=== PATIENT | male | born 1955 | race African-American/Black ===

== ENCOUNTER 2017-02-14 01:45 | Inpatient (IN) | payer MEDICAID ==
[~2017-02-14] VITALS: Ht 177.8 cm; Wt 124.7 kg
[2017-02-14] MEDS ORDERED: FUROSEMIDE 40MG/4ML VIAL IV STA (02:36)
[2017-02-14 02:54] LABS: EOSINOPHILS % 5.8 % (0.0-5.0); HEMATOCRIT. 43.1 % (42.0-52.0); HEMOGLOBIN. 14.7 g/dL (14.0-18.0); LYMPHOCYTES % 21.7 % (20.0-50.0); MEAN CORPUSCULAR HEMOGLOBIN 29.8 pg (28.0-32.0); MEAN CORPUSCULAR VOLUME 87.7 fL (80.0-94.0); MEAN PLATELET VOLUME 8.4 fl (7.4-10.4); NEUTROPHILS % 59.5 % (40.0-76.0); PLATELET 249 x1000/uL (130-400); RED BLOOD CELL COUNT 4.91 mill/uL (4.7-6.1); RED CELL DISTRIBUTION WIDTH 13.7 % (11.6-14.6)
[2017-02-14 03:10] LABS: CARBON DIOXIDE 27 mEq/L (21-32); CHLORIDE 104 mEq/L (98-107); TROPONIN I < 0.02 ng/mL (0.00-0.04)
[2017-02-14] MEDS ORDERED: MORPHINE SULFATE 4 MG/ML CPJ (NOT FOR IM USE) IV ONE (03:30)
[2017-02-14] MEDS ORDERED: ACETAMINOPHEN 325MG TABLET PO PRN ×2 (06:30→12:00)
[2017-02-14] MEDS ORDERED: GUAIFENESIN 200MG/10ML SUGAR FREE UDC PO PRN (12:00)
[2017-02-14] MEDS ORDERED: ONDANSETRON HCL 4MG/2ML VIAL IV PRN (12:00)
[2017-02-14] MEDS ORDERED: CLONIDINE 0.1MG TABLET PO PRN ×2 (12:00→12:45)
[2017-02-14] MEDS ORDERED: HYDROCODONE/ACETAMINOPHEN 5/325MG TABLET PO PRN (12:00)
[2017-02-14] MEDS ORDERED: IPRATROPIUM/ALBUTEROL 0.5-3(2.5)MG/3ML NEB INH PRN (12:00)
[2017-02-14] MEDS ORDERED: MAGNESIUM/ALUMINUM HYDROXIDE/SIMETHICONE 30ML UDC PO PRN (12:00)
[2017-02-14 13:02] LABS: CHLORIDE 103 mEq/L (98-107)
[2017-02-14 13:07] LABS: CARBON DIOXIDE 31 mEq/L (21-32)
[2017-02-14 13:52] VITALS: BP 141/96
[2017-02-14] MEDS: LOSARTAN POTASSIUM 25 MG TABLET PO SCH ×2 (14:31→23:22)
[2017-02-14] MEDS: PREDNISONE 20MG TABLET PO SCH (14:31)
[2017-02-14] MEDS: PANTOPRAZOLE 40MG DR TABLET PO SCH (14:32)
[2017-02-14] MEDS ORDERED: LISI-604 PO (15:06)
[2017-02-14] MEDS ORDERED: FURO-151 PO (15:06)
[2017-02-14] MEDS ORDERED: KDUR20 PO (15:06)
[2017-02-14] MEDS ORDERED: CARV6.2548 PO (15:06)
[2017-02-14 15:49] VITALS: BP 141/96
[2017-02-14 16:00] VITALS: BP 156/97
[2017-02-14] MEDS: POTASSIUM CHLORIDE 20MEQ TABLET SR PO SCH (17:17)
[2017-02-14 18:11] LABS: CREATINE KINASE MB FRACTION 2.6 ng/mL (0.5-3.6); TROPONIN I < 0.02 ng/mL (0.00-0.04)
[2017-02-14 18:15] LABS: CREATINE KINASE 1134 IU/L (39-308)
[2017-02-14 20:00] VITALS: BP 143/65
[2017-02-14] MEDS: BUDESONIDE 0.5MG/2ML NEB HHN SCH (20:23)
[2017-02-14] MEDS: ENOXAPARIN 40MG/0.4ML SYR SUBCUT SCH (23:22)
[2017-02-15] VITALS: BP 136/78
[2017-02-15 04:00] VITALS: BP 144/66
[2017-02-15] MEDS: PANTOPRAZOLE 40MG DR TABLET PO SCH (06:41)
[2017-02-15 08:30] VITALS: BP 129/90
[2017-02-15] MEDS ORDERED: FUROSEMIDE 40MG TABLET PO SCH (09:00)
[2017-02-15] MEDS ORDERED: CARVEDILOL 6.25 MG TABLET PO SCH (09:00)
[2017-02-15] MEDS: ENOXAPARIN 40MG/0.4ML SYR SUBCUT SCH ×2 (10:05→21:37)
[2017-02-15] MEDS: ASPIRIN 81MG EC TABLET PO SCH (10:06)
[2017-02-15] MEDS: FUROSEMIDE 40MG/4ML VIAL IVP SCH (10:06)
[2017-02-15] MEDS: POTASSIUM CHLORIDE 20MEQ TABLET SR PO SCH (10:06)
[2017-02-15] MEDS: LISINOPRIL 20MG TABLET PO SCH (10:07)
[2017-02-15] MEDS: PREDNISONE 20MG TABLET PO SCH (10:08)
[2017-02-15] MEDS: LOSARTAN POTASSIUM 25 MG TABLET PO SCH ×2 (10:08→21:41)
[2017-02-15] MEDS ORDERED: IPRATROPIUM/ALBUTEROL 0.5-3(2.5)MG/3ML NEB HHN PRN (12:45)
[2017-02-15 12:51] VITALS: BP 136/79
[2017-02-15] MEDS: IPRATROPIUM/ALBUTEROL 0.5-3(2.5)MG/3ML NEB HHN SCH ×2 (12:52→20:18)
[2017-02-15] MEDS: BUDESONIDE 0.5MG/2ML NEB HHN SCH ×2 (12:52→20:18)
[2017-02-15] MEDS: TRIAMCINOLONE ACETONIDE 0.1% CREAM 15GM TOP SCH ×2 (15:41→21:37)
[2017-02-15] MEDS: NICOTINE 7MG PATCH TD SCH (15:41)
[2017-02-15 16:06] LABS: CLARITY URINE CLEAR (CLEAR); COLOR URINE YELLOW (YELLOW); GLUCOSE URINE NEGATIVE (NEGATIVE); KETONES URINE NEGATIVE (NEGATIVE); LEUKOCYTE ESTERASE URINE NEGATIVE (NEGATIVE); NITRITE URINE NEGATIVE (NEGATIVE); OCCULT BLOOD URINE NEGATIVE (NEGATIVE); PH URINE >=9.0 (4.5-8.0); PROTEIN URINE NEGATIVE (NEGATIVE); SPECIFIC GRAVITY URINE 1.017 (1.005-1.030)
[2017-02-15] MEDS: CARVEDILOL 6.25 MG TABLET PO SCH (16:08)
[2017-02-15 16:31] LABS: *AMPHETAMINES SCREEN URINE NEGATIVE (NEGATIVE); *BARBITURATES SCREEN URINE NEGATIVE (NEGATIVE); *BENZODIAZEPINES SCREEN URINE NEGATIVE (NEGATIVE); *COCAINE SCREEN URINE NEGATIVE (NEGATIVE); CANNABINOID URINE SCREEN PRESUMTIVE POSITIVE (NEGATIVE); METHADONE URINE SCREEN NEGATIVE (NEGATIVE); OPIATES URINE SCREEN NEGATIVE (NEGATIVE); PHENCYCLIDINE URINE SCREEN NEGATIVE (NEGATIVE)
[2017-02-15 16:46] VITALS: BP 165/92
[2017-02-15 19:55] VITALS: BP 125/65
[2017-02-16] MEDS: IPRATROPIUM/ALBUTEROL 0.5-3(2.5)MG/3ML NEB HHN SCH ×5 (00:12→15:00)
[2017-02-16 00:40] VITALS: BP 102/69
[2017-02-16 04:59] VITALS: BP 119/72
[2017-02-16 06:38] LABS: BASOPHILS % 0.5 % (0.0-2.0); EOSINOPHILS % 1.6 % (0.0-5.0); HEMATOCRIT. 42.5 % (42.0-52.0); HEMOGLOBIN. 14.4 g/dL (14.0-18.0); LYMPHOCYTES % 18.7 % (20.0-50.0); MEAN CORPUSCULAR HEMOGLOBIN 29.9 pg (28.0-32.0); MEAN PLATELET VOLUME 9.1 fl (7.4-10.4); MONOCYTES % 7.1 % (2.0-8.0); NEUTROPHILS % 72.1 % (40.0-76.0); PLATELET 242 x1000/uL (130-400); RED BLOOD CELL COUNT 4.83 mill/uL (4.7-6.1)
[2017-02-16 06:58] LABS: CARBON DIOXIDE 30 mEq/L (21-32); CHLORIDE 102 mEq/L (98-107)
[2017-02-16 06:59] LABS: TROPONIN I < 0.02 ng/mL (0.00-0.04)
[2017-02-16 07:57] VITALS: BP 124/75
[2017-02-16] MEDS ORDERED: FAMOTIDINE 20MG TABLET PO SCH (09:00)
[2017-02-16] MEDS: BUDESONIDE 0.5MG/2ML NEB HHN SCH (09:54)
[2017-02-16] MEDS: ENOXAPARIN 40MG/0.4ML SYR SUBCUT SCH (10:55)
[2017-02-16] MEDS: NICOTINE 7MG PATCH TD SCH (10:55)
[2017-02-16] MEDS: LOSARTAN POTASSIUM 25 MG TABLET PO SCH (10:56)
[2017-02-16] MEDS: TRIAMCINOLONE ACETONIDE 0.1% CREAM 15GM TOP SCH (10:56)
[2017-02-16] MEDS: CARVEDILOL 6.25 MG TABLET PO SCH ×2 (10:56→16:20)
[2017-02-16] MEDS: PREDNISONE 20MG TABLET PO SCH (10:57)
[2017-02-16] MEDS: LISINOPRIL 20MG TABLET PO SCH (10:57)
[2017-02-16] MEDS: FUROSEMIDE 40MG/4ML VIAL IVP SCH (10:58)
[2017-02-16] MEDS: POTASSIUM CHLORIDE 20MEQ TABLET SR PO SCH (10:58)
[2017-02-16] MEDS: ASPIRIN 81MG EC TABLET PO SCH (10:58)
[2017-02-16 12:00] VITALS: BP 143/93
[2017-02-16 15:27] VITALS: BP 143/93
[2017-02-16 16:00] VITALS: BP 142/82
== END 2017-02-16 18:10 | disposition home or self-care (01) | DRG 194 ==
LOC: ER 01:45 → 6WST 06:18 → EDBEDREQ 12:09 → ENRESERV 12:20
PROVIDERS: ADMIT Internal Medicine; ATTEND Internal Medicine
DX: I11.0 Hypertensive heart disease with heart failure (principal); I49.5 Sick sinus syndrome; I44.1 Atrioventricular block, second degree; Z95.1 Presence of aortocoronary bypass graft; J44.1 Chronic obstructive pulmonary disease with (acute) exacerbation; I50.9 Heart failure, unspecified; G47.33 Obstructive sleep apnea (adult) (pediatric); D72.829 Elevated white blood cell count, unspecified; E78.00 Pure hypercholesterolemia, unspecified; F17.210 Nicotine dependence, cigarettes, uncomplicated; I45.10 Unspecified right bundle-branch block; Z59.0 Homelessness; Z79.899 Other long term (current) drug therapy; Z82.49 Family history of ischemic heart disease and other diseases of the circulatory system; Z95.0 Presence of cardiac pacemaker
CPT/HCPCS: 36415; 71010; 80048; 80053; 80061; 80305; 81003; 82550; 82553; 83735; 83880; 84443; 84484; 85025; 93005; 93306; 93970; 94640; 94660; 94664; 96374; 96375; 97162; 97166; 99285; J1650; J1940; J2270; J7512; J7620; J7626

== ENCOUNTER 2017-08-09 14:34 | Emergency (ER) | payer MEDICAID, OTHER ==
[~2017-08-09] VITALS: Ht 177.8 cm; Wt 123.0 kg
[~2017-08-09 14:34] MED LIST: CARV6.2548 PO; FURO-151 PO; KDUR20 PO; LISI-604 PO; NICO-645 TD; TRIA15OI8 TP
[2017-08-09] MEDS ORDERED: RIVA10TA PO (15:14)
[2017-08-09] MEDS ORDERED: ALBU18HF2 IH (15:14)
[2017-08-09] MEDS ORDERED: ASPI-1159 PO (15:14)
[2017-08-09 18:56] LABS: EOSINOPHILS % 3.8 % (0.0-5.0); HEMATOCRIT. 43.5 % (42.0-52.0); HEMOGLOBIN. 14.6 g/dL (14.0-18.0); LYMPHOCYTES % 29.2 % (20.0-50.0); MEAN CORPUSCULAR HEMOGLOBIN 29.6 pg (28.0-32.0); MEAN CORPUSCULAR VOLUME 88.3 fL (80.0-94.0); MEAN PLATELET VOLUME 8.4 fl (7.4-10.4); MONOCYTES % 9.1 % (2.0-8.0); NEUTROPHILS % 56.9 % (40.0-76.0); PLATELET 259 x1000/uL (130-400); RED BLOOD CELL COUNT 4.92 mill/uL (4.7-6.1); RED CELL DISTRIBUTION WIDTH 13.7 % (11.6-14.6)
[2017-08-09 19:04] LABS: INR 1.2; PROTHROMBIN TIME 12.9 sec (9.4-11.6)
[2017-08-09 19:06] LABS: CHLORIDE 108 mEq/L (98-107)
[2017-08-09] MEDS ORDERED: SODIUM CHLORIDE 0.9% 500 ML IV ONE (19:15)
[2017-08-09] MEDS ORDERED: IOHEXOL-350 100 ML BOTTLE ONE (22:27)
[2017-08-09 23:56] VITALS: BP 140/90
== END 2017-08-09 23:57 | disposition home or self-care (01) ==
LOC: ER 15:13
DX: I11.0 Hypertensive heart disease with heart failure (principal); I50.9 Heart failure, unspecified; M79.661 Pain in right lower leg; R51 Headache; R60.9 Edema, unspecified; F17.200 Nicotine dependence, unspecified, uncomplicated; Z95.0 Presence of cardiac pacemaker; Z79.82 Long term (current) use of aspirin; Z86.718 Personal history of other venous thrombosis and embolism
CPT/HCPCS: 36415; 71045; 71275; 80053; 83880; 84484; 85025; 85610; 93005; 93970; 96360; 96361; 99285; J7030; J7040; Q9967; Z7610

== ENCOUNTER 2017-11-06 05:38 | Emergency (ER) | payer MEDICAID ==
[~2017-11-06] VITALS: Ht 177.8 cm; Wt 125.0 kg
[~2017-11-06 05:38] MED LIST changes: +ALBU18HF2 IH; +ASPI-1159 PO; +RIVA10TA PO
[2017-11-06] MEDS ORDERED: ALBUTEROL (0.083%) 2.5MG/3ML NEB HHN STA (07:08)
[2017-11-06] MEDS ORDERED: PREDNISONE 20MG TABLET PO STA (07:08)
[2017-11-06 07:30] LABS: BASOPHILS % 0.9 % (0.0-2.0); EOSINOPHILS % 3.2 % (0.0-5.0); HEMOGLOBIN. 14.3 g/dL (14.0-18.0); LYMPHOCYTES % 19.3 % (20.0-50.0); MEAN CORPUSCULAR HEMOGLOBIN 30.2 pg (28.0-32.0); MEAN CORPUSCULAR VOLUME 88.4 fL (80.0-94.0); MEAN PLATELET VOLUME 8.3 fl (7.4-10.4); MONOCYTES % 9.2 % (2.0-8.0); NEUTROPHILS % 67.4 % (40.0-76.0); PLATELET 242 x1000/uL (130-400); RED BLOOD CELL COUNT 4.75 mill/uL (4.7-6.1); RED CELL DISTRIBUTION WIDTH 14.5 % (11.6-14.6)
[2017-11-06 07:36] LABS: CHLORIDE 106 mEq/L (98-107)
[2017-11-06 08:17] VITALS: BP 148/74
[2017-11-06] MEDS ORDERED: ACETAMINOPHEN 500MG TABLET PO ONE (08:45)
== END 2017-11-06 09:59 | disposition home or self-care (01) ==
LOC: ER 06:21
DX: J44.9 Chronic obstructive pulmonary disease, unspecified (principal); M13.861 Other specified arthritis, right knee; I10 Essential (primary) hypertension; F12.10 Cannabis abuse, uncomplicated; E66.01 Morbid (severe) obesity due to excess calories; F17.210 Nicotine dependence, cigarettes, uncomplicated; Z68.39 Body mass index [BMI] 39.0-39.9, adult; Z91.14 Patient's other noncompliance with medication regimen; Z95.0 Presence of cardiac pacemaker
CPT/HCPCS: 36415; 71045; 73562; 80053; 84484; 85025; 93005; 99285; J7512